=== PATIENT | female | born 2000 | race American Indian/Alaskan Native ===

== ENCOUNTER 2018-01-12 06:55 | Emergency (ER) | payer OTHER ==
[2018-01-12 07:37] VITALS: BP 111/78
[2018-01-12 08:24] LABS: HCG Qualitative,Urine Negative (Negative)
--- NOTE | 2018-01-12 08:24 | Emergency Department Report ---
ED Lower Extremity HPI - General Chief Complaint: Extremity Injury, Lower Stated Complaint: LT PINKY TOE PAIN Time Seen by Provider: 01/12/18 08:03 Source: patient Mode of arrival: Ambulatory Limitations: No Limitations - History of Present Illness Initial Comments: This is a 17-year-old -English female who presents with pain in left fifth toe for 2 days. Patient reports she is visiting here from [place]. She hit her toe on the side of bedpost Friday afternoon. States she applied ice, wrap with clifton wrap to control swelling. She is able to ambulate the pain is 7 out of 10 on pain scale and worse with movement. She has taken some Motrin to help with pain with no improvement of symptoms. She decided to come in for evaluation because after taking clifton wrap off she noticed her foot turned purple around the fifth digit. There is swelling and bruising to the lateral side of left foot. Denies paresthesia, loss of consciousness, deformity, fever, warmth , and chest pain. MD Complaint: foot injury (left foot) -: days(s) (2 days) Injury: Foot: Left (fifth digit of left foot pain) Type of Injury: blunt Place: home Severity: moderate Severity scale (0 -10): 7 Improves With: immobilization Worsens With: weight bearing, movement, palpation Context: direct blow Associated Symptoms: swelling, able to partially bear weight, ambulatory. denies: snap/pop sensation, numbness, tingling, unable to bear weight Treatments Prior to Arrival: cold therapy, bandage, NSAIDS - Related Data Previous Rx's Medication Instructions Recorded Last Taken Type Ibuprofen [Motrin 800 MG tab] 800 mg PO Q8HR PRN #20 tablet 01/12/18 Unknown Rx Tizanidine HCl [Zanaflex] 2 mg PO TID PRN #15 capsule 01/12/18 Unknown Rx traMADol [Ultram 50 MG tab] 50 mg PO Q6HR PRN #15 tablet 01/12/18 Unknown Rx Allergies Allergy/AdvReac Type Severity Reaction Status Date / Time No Known Allergies Allergy Unverified 01/12/18 07:37 ED Review of Systems ROS: Stated complaint: LT PINKY TOE PAIN Other details as noted in HPI Constitutional: denies: chills, fever Respiratory: denies: cough, shortness of breath, wheezing Cardiovascular: denies: chest pain, palpitations Gastrointestinal: denies: abdominal pain, nausea, vomiting, diarrhea Musculoskeletal: arthralgia (left foot swelling and pain in the fifth digit). denies: back pain, joint swelling Skin: denies: rash, lesions Neurological: denies: headache, weakness, numbness, paresthesias Psychiatric: denies: anxiety, depression ED Past Medical Hx - Past Medical History Previous Medical History?: No - Surgical History Past Surgical History?: Yes Additional Surgical History: adenoids removed - Social History Smoking Status: Never Smoker Substance Use Type: None - Medications Home Medications: Home Medications Medication Instructions Recorded Confirmed Last Taken Type Ibuprofen [Motrin 800 MG tab] 800 mg PO Q8HR PRN #20 tablet 01/12/18 Unknown Rx Tizanidine HCl [Zanaflex] 2 mg PO TID PRN #15 capsule 01/12/18 Unknown Rx traMADol [Ultram 50 MG tab] 50 mg PO Q6HR PRN #15 tablet 01/12/18 Unknown Rx ED Physical Exam - General Limitations: No Limitations General appearance: alert, in no apparent distress - Respiratory Respiratory exam: Present: normal lung sounds bilaterally. Absent: respiratory distress - Cardiovascular Cardiovascular Exam: Present: regular rate, normal rhythm, normal heart sounds. Absent: systolic murmur, diastolic murmur, rubs, gallop - GI/Abdominal GI/Abdominal exam: Present: soft, normal bowel sounds. Absent: organomegaly, mass - Extremities Exam Extremities exam: Present: normal capillary refill. Absent: pedal edema, calf tenderness - Expanded Lower Extremity Exam Left Hip exam: Present: normal inspection, full ROM Upper Leg exam: Present: normal inspection, full ROM Knee exam: Present: normal inspection, full ROM Lower Leg exam: Present: normal inspection, full ROM Ankle exam: Present: normal inspection, full ROM Foot/Toe exam: Present: tenderness, swelling, ecchymosis, tenderness at base of 5th metatarsal (swelling and tenderness and fifth PIP of the fifth phalanx). Absent: abrasion, laceration, deformity, crepidus, dislocation, erythema, amputation, puncture wound, foreign body, calcaneal tenderness, nail avulsion, subungual hematoma Neuro vascular tendon exam: Present: no vascular compromise Gait: Positive: observed and limited by pain - Neurological Exam Neurological exam: Present: alert, oriented X3 - Psychiatric Psychiatric exam: Present: normal affect, normal mood - Skin Skin exam: Present: warm, dry, intact, normal color. Absent: rash ED Course Vital Signs 01/12/18 07:33 Temperature 98.1 F Pulse Rate 70 Respiratory 18 Rate Blood Pressure 111/78 O2 Sat by Pulse 100 Oximetry ED Lower Extremity MDM - Radiology Data Radiology results: report reviewed LEFT FOOT RADIOGRAPHS INDICATION: Left foot injury, pain. COMPARISON: None similar at this institution. FINDINGS: AP and lateral left foot radiographs demonstrate a subtle nondisplaced fracture at the base/proximal aspect of the fifth proximal phalanx with mild overlying soft tissue swelling suspected on the frontal view. No definite articular surface involvement. Normal remainder exam. CONCLUSION: Acute nondisplaced fracture involving the left fifth toe proximal phalanx base, as detailed above. Please correlate. Thank you for the opportunity to participate in this patient's care. - Medical Decision Making This is a 17-year-old -English female who presents with left fifth digit pain and swelling to left foot for 2 days. Patient was examined by me. Vitals are normal. Obtained a urine hCG and x-ray of left foot. Urine hCG negative for . X-ray read by radiologist: Acute nondisplaced fracture involving the left fifth toe proximal phalanx base, as detailed above. Please correlate. Patient informed of results. Clifton wrap applied to left foot with postop surgical shoe. Patient given print out a report and CD to follow up with primary care provider and orthopedics in [place]. Start tramadol, ibuprofen, and tizanidine for pain. Plan discussed with patient to discharge home and treat outpatient. Patient discharged home in stable condition. Follow up with PCP and orthopedics in 2-3 days. Critical care attestation.: If time is entered above; I have spent that time in minutes in the direct care of this critically ill patient, excluding procedure time. ED Disposition Clinical Impression: Foot pain, left Closed fracture of phalanx of left fifth toe Qualifiers: Encounter type: initial encounter Qualified Code(s): S92.502A - Displaced unspecified fracture of left lesser toe(s), initial encounter for closed fracture Disposition: TO HOME OR SELFCARE Is pt being admited?: No Does the pt Need Aspirin: No Condition: Stable Instructions: Toe Fracture (ED), Arthralgia (ED) Additional Instructions: Rest Use ice or heat on affected area for 20 minutes and off for 2 hours. Take pain medication every 6 hours as needed for pain. Don't drive or operate heavy machinery while taking muscle relaxers because they may cause drowsiness. Follow-up with orthopedic surgery in 2-3 days. Follow up with Primary Care Provider in 2-3 days. Prescriptions: Ibuprofen [Motrin 800 MG tab] 800 mg PO Q8HR PRN #20 tablet PRN Reason: Pain Tizanidine HCl [Zanaflex] 2 mg PO TID PRN #15 capsule PRN Reason: Muscle Spasm traMADol [Ultram 50 MG tab] 50 mg PO Q6HR PRN #15 tablet PRN Reason: Pain Referrals: ANDRÉS GALLAGHER MD [Staff Physician] - 3-5 Days [facility] [Provider Group] - 3-5 Days [facility] [Provider Group] - 3-5 Days Time of Disposition: 09:09 Print Language: MACEDONIAN
--- NOTE | 2018-01-12 08:45 | XRay Report ---
LEFT FOOT RADIOGRAPHS INDICATION: Left foot injury, pain. COMPARISON: None similar at this institution. FINDINGS: AP and lateral left foot radiographs demonstrate a subtle nondisplaced fracture at the base/proximal aspect of the fifth proximal phalanx with mild overlying soft tissue swelling suspected on the frontal view. No definite articular surface involvement. Normal remainder exam. CONCLUSION: Acute nondisplaced fracture involving the left fifth toe proximal phalanx base, as detailed above. Please correlate. Thank you for the opportunity to participate in this patient's care.
== END 2018-01-12 09:22 | disposition home or self-care (01) ==
LOC: ED 06:55
DX: S92.512A Displaced fracture of proximal phalanx of left lesser toe(s), initial encounter for closed fracture (principal); X58.XXXA Exposure to other specified factors, initial encounter; Y93.89 Activity, other specified; Y92.89 Other specified places as the place of occurrence of the external cause; Y99.8 Other external cause status
CPT/HCPCS: 81025; 99283